=== PATIENT | male | born 2000 | race Caucasian/White ===

== ENCOUNTER 2021-06-04 06:58 | Day surgery (SDC) | payer OTHER ==
[~2021-06-04] VITALS: Ht 170.2 cm; Wt 95.7 kg
[~2021-06-04 06:58] MED LIST: LIDOCAINE 1% MDV 20ML VIAL SQ PRN; LR 1,000 ML IV ONE
[2021-06-04] MEDS ORDERED: ROCURONIUM BROMIDE 50 MG/5 ML VIAL As Ordered ONE (08:08)
[2021-06-04] MEDS ORDERED: LIDOCAINE 2% 100MG/5ML SDV (FOR ANES.) As Ordered ONE (08:08)
[2021-06-04] MEDS ORDERED: MIDAZOLAM INJ 2MG/2ML VIAL (J2250 PER 1MG) As Ordered ONE (08:09)
[2021-06-04] MEDS ORDERED: propofoL 200 MG/20 ML VIAL As Ordered ONE (08:09)
[2021-06-04] MEDS ORDERED: fentaNYL 250 MCG/5 ML INJECTION (J3010) As Ordered ONE (08:09)
[2021-06-04] MEDS ORDERED: dexameTHASONE 4 MG/ML 1ML VIAL (J1100 PER 1MG) IV ONE (08:15)
[2021-06-04] MEDS ORDERED: ONDANSETRON 4MG/2ML VIAL As Ordered ONE (09:22)
[2021-06-04] MEDS ORDERED: OXYMETAZOLINE 0.05% NASAL SPRAY (AFRIN) As Ordered ONE (09:27)
[2021-06-04] MEDS ORDERED: SUGAMMADEX SODIUM 500 MG/5 ML VIAL (BRIDION) As Ordered ONE (09:32)
[2021-06-04] MEDS ORDERED: ACETAMINOPHEN 1000MG 100ML IV BTL (OFIRMEV) (J0131 PER 10MG) As Ordered ONE (09:33)
[2021-06-04] MEDS ORDERED: LR 1,000 ML IV SCH ×2 (10:15)
[2021-06-04] MEDS ORDERED: ONDANSETRON 4MG/2ML VIAL IV PRN (10:15)
[2021-06-04] MEDS ORDERED: fentaNYL 100 MCG/2 ML INJECTION (J3010) IV PRN (10:15)
[2021-06-04] MEDS ORDERED: METOCLOPRAMIDE INJ 10MG/2ML VIAL (J2765 PER 1) IV PRN (10:15)
[2021-06-04] MEDS ORDERED: oxyCODONE 5MG TAB PO PRN (10:15)
[2021-06-04 11:40] VITALS: BP 124/81
--- NOTE | 2021-06-09 09:52 | RO ---
OPERATIVE NOTE DATE OF OPERATION: 06/04/2021 PREOPERATIVE DIAGNOSIS: Tonsillar hypertrophy. POSTOPERATIVE DIAGNOSIS: Tonsillar hypertrophy. PROCEDURE PERFORMED: Tonsillectomy. SURGEON: SHEMAR XIE MD ANESTHESIA: General. CLINICAL PREAMBLE: This is a 20-year-old man who presented to the office with a history of enlarged tonsils. Physical examination confirmed the presence of enlarged tonsils. Management options including tonsillectomy have been discussed with the patient. The patient understood and consented to the procedure. DESCRIPTION OF PROCEDURE: Patient was identified in preoperative holding and brought to the operating room in stable condition. In supine position on the operating table, patient received general anesthesia followed by orotracheal intubation without incident. Patient was prepped and draped in the usual fashion for the procedure. The Sean-Cesar mouth gag was inserted and suspended. The right tonsil was medialized using curved Allis forceps. Mucosal incision was made over the superior pole of the right tonsil using the Coblator wand set at 7 for Coblation. The tonsillar capsule was identified, and dissection was carried out along this plane to excise the right tonsil. The left tonsil was then similarly dissected out. At the end of the procedure, both tonsil beds were free of bleeding. Estimated blood loss was 5 mL. No complication was encountered. Sponge and instrument counts were correct at the end of the procedure. General anesthesia was reversed, and patient was extubated and brought to the recovery room in stable condition.
== END 2021-06-04 11:40 | disposition home or self-care (01) ==
LOC: M SDC 06:58
PROVIDERS: ATTEND Otolaryngology
DX: J35.1 Hypertrophy of tonsils (principal); R06.83 Snoring; J00 Acute nasopharyngitis [common cold]
CPT/HCPCS: 42826; 88302; J0131; J1100; J2250; J2405; J3010